=== PATIENT | male | born 2000 | race Two or more races ===

== ENCOUNTER 2020-06-20 08:21 | Emergency (ER) | payer OTHER, SELFPAY ==
[2020-06-20 08:36] VITALS: BP 118/78; PULSE 102; RESP 18; TEMP 36.2; O2SAT 98
[2020-06-20 08:47] LABS: Basophils Percent Auto 0.1 % (0.2-1.2); Eosinophils Absolute Auto 0.1 K/mm3 (0-0.3); Eosinophils Percent Auto 1.2 % (0-4.4); Hematocrit 48.5 % (42.0-52.0); Hemoglobin 16.5 g/dL (14.0-18.0); Immature Granulocyte Absolute 0.01 K/mm3 (0.00-0.031); Immature Granulocyte Percent A 0.1 % (0-0.5); Lymphocytes Absolute Auto 0.63 K/mm3 (0.9-3.2); Lymphocytes Percent Auto 8.4 % (18.3-44.2); Mean Corpuscular Hemoglobin 30.7 pg (26-34); Mean Corpuscular Volume 90.1 fl (80-100); Mean Platelet Volume 10.1 fl (7.4-10.4); Monocytes Absolute Auto 0.4 K/mm3 (0.1-0.6); Monocytes Percent Auto 4.7 % (2.6-8.5); Neutrophils Absolute Auto 6.4 K/mm3 (1.3-6.7); Neutrophils Percent Auto 85.5 % (45.5-73.1); Platelet Count Result 166 k/mm3 (150-375); Red Blood Count 5.38 M/mm3 (4.6-6.20); Red Cell Distribution Width 12.1 % (11.5-14.5); White Blood Count 7.5 K/mm3 (4.5-10.0)
[2020-06-20 08:51] LABS: Add Urine Microscopic? YES; Appearance Urine Clear (Clear); Bacteria Urine Trace /hpf; Bilirubin Urine Negative (Negative); Blood Urine Negative (Negative); Color Urine Yellow (Yellow); Glucose Urine UA Negative (Negative); Ketones Urine Negative (Negative); Leukocyte Esterase Ur Negative LEU/UL (Negative); Mucus Urine Moderate /lpf; Nitrate Urine Negative (Negative); Protein Urine 1+ mg/dL (Negative); RBC Urine 0-2 /hpf (0-2); Specific Grav Ur 1.028 (1.001-1.035); Urobilinogen Urine Negative mg/dL (<2.0); WBC Urine 0-3 /hpf
[2020-06-20 08:58] LABS: Alanine Aminotransferase 46 U/L (4-50); Albumin Level 4.8 g/dL (3.5-5.1); Alkaline Phosphatase 66 U/L (38-126); Anion Gap 7 mmol/L (8-16); Aspartate Amino Transferase 41 U/L (17-59); Bilirubin,Total 1.1 mg/dL (0.2-1.3); Blood Urea Nitrogen 26 mg/dL (9-20); Calcium 9.6 mg/dL (8.4-10.2); Carbon Dioxide 31 mmol/L (22-30); Chloride 105 mmol/L (98-107); Estimated CRCL calculation 110 ml/min; Estimated Glomerular Filt Rate > 60; Glucose 107 mg/dL (75-110); Lipase 125 U/L (23-300); Sodium 143 mmol/L (137-145)
--- NOTE | 2020-06-20 08:59 | ED.NAVMDI ---
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 HE woke up at 230 am this morning with mild diarrhea. He states he woke up again 2 hours later with nausea and vomiting. He states he felt fine but 2 hours later he woke up feeling dizziness, nauseous and he vomited again. He still reports mild dizziness that he describes as spinning. He denies abdominal pain,chest pain, fever, chills, cough, ear ache. He ate subway yesterday at 7 pm and he states that is what he threw up this morning. He denies any sick contacts. Related Data Allergies Allergy/AdvReac Type Severity Reaction Status Date / Time No Known Drug Allergies Allergy Mild Other Verified 06/20/20 09:50 Review of Systems Review of Systems: All systems reviewed & are unremarkable except as noted in HPI and below Constitutional: Constitutional: Denies chills and Denies fever(s) Eyes: Eyes: Denies change in vision ENT: Reports dizziness and Denies sore throat Cardiovascular: Cardiovascular: Denies chest pain Respiratory: Respiratory: Denies cough and Denies dyspnea Gastrointestinal: Gastrointestinal: Denies abdominal pain, Reports diarrhea, Reports nausea and Reports vomiting PMFSH Past Medical History Medical History (Updated 06/20/20 @ 12:21 by Gardenia Mckeon MD) Patient denies medical problems Surgical History Surgical History (Updated 06/20/20 @ 09:00 by Gardenia Mckeon MD) H/O wisdom tooth extraction Social History Social History (Updated 06/20/20 @ 09:00 by Gardenia Mckeon MD) Smoking status: Never smoker Alcohol intake: never Substance use: never Gender identity (if verbalized by the patient): Male Exam Const: General: no acute distress and alert Orientation/consciousness: patient oriented x3 HENMT: Ears: external ears normal and TM abnormal obstructed by cerumen bilateral Face and sinus: face symmetric Mouth: Yes Normal oral and palatal mucosa present, Yes lip normal, Yes oropharynx normal and Yes moist mucous membranes Throat: posterior oropharynx normal and tonsils normal Eyes: Pupils: Equal, round and reactive pupils present EOM: EOMs intact bilaterally Chest: Chest palpation & inspection: normal inspection of the chest Resp: Effort & Inspection: normal respiratory effort and no retractions Auscultation: clear to auscultation bilaterally Cardio: Rate: regular rate Rhythm: regular rhythm Heart sounds: no murmurs GI: GI Palp: Yes Soft to palpation, No Tenderness to palpation present (GI) and No Guarding due to palpation present (GI) Auscultation: normal bowel sounds Back/Spine/Pelvis: Back: no CVA tenderness Skin: General skin exam: normal color Rashes: no rashes Neuro: General: patient oriented x3, moves all extremities and CN's II-XI intact bilaterally Psych: Mental Status: mental status grossly normal Affect: normal affect Course Reevaluation(s) Reevaluation #1: PAtient's ears were irrigated. He states he feels better. He was able to tolerate PO. He was mildly dehydrated. Date: 06/20/20 Time: 12:20 Vital Signs Vital signs: Vital Signs Temperature 97.2 F L 06/20/20 08:36 Pulse Rate 102 H 06/20/20 08:36 Respiratory Rate 18 06/20/20 08:36 Blood Pressure 118/78 06/20/20 08:36 Pulse Oximetry 98 06/20/20 08:36 Temperature 97.2 F L 06/20/20 08:36 Pulse Rate 92 06/20/20 12:55 Respiratory Rate 16 06/20/20 12:55 Blood Pressure 120/70 06/20/20 12:55 Pulse Oximetry 99 06/20/20 12:55 MDM - Nausea/Vomiting/Diarrhea Lab Data Attestation: I reviewed the patient's lab results. Result diagrams: 06/20/20 08:40 06/20/20 08:40
[2020-06-20 09:07] VITALS: BP 107/73; PULSE 93
[2020-06-20 09:08] VITALS: BP 115/80; PULSE 95
[2020-06-20 09:10] VITALS: BP 108/80; PULSE 95
[2020-06-20] MEDS: LACTATED RINGERS 1,000 ML 999 ML IV CONT ×2 (09:58)
[2020-06-20] MEDS: ONDANSETRON INJ 4 MG/2 ML VIAL IV PUSH (09:58)
[2020-06-20] MEDS: MECLIZINE HCL 25 MG TABLET PO ×2 (09:58→11:21)
[2020-06-20 10:38] VITALS: BP 111/60; PULSE 83; RESP 13
[2020-06-20 12:55] VITALS: BP 120/70; PULSE 92; RESP 16; O2SAT 99
[2020-06-20 23:32] LABS: SARS-CoV-2 RNA PCR Negative
== END 2020-06-20 12:55 | disposition home or self-care (01) ==
PROVIDERS: Emergency Provider General Practice; PCP Pediatrics
DX: K52.9 Noninfective gastroenteritis and colitis, unspecified (principal); E86.0 Dehydration; Z20.822 Contact with and (suspected) exposure to COVID-19
CPT/HCPCS: 36415; 80053; 81001; 83690; 85025; 96361; 96374; 99284; A9270; C9803; J2405; J7120; U0003; U0005

== ENCOUNTER 2023-04-28 04:35 | Emergency (ER) | payer OTHER, SELFPAY ==
[2023-04-28 04:41] VITALS: BP 103/79; PULSE 129; RESP 16; TEMP 36.9; O2SAT 99
[2023-04-28 06:04] LABS: Basophils Percent Auto 0.1 % (0.2-1.2); Hematocrit 45.9 % (42.0-52.0); Hemoglobin 15.3 g/dL (14.0-18.0); Immature Granulocyte Absolute 0.03 K/mm3 (0.00-0.031); Immature Granulocyte Percent A 0.3 % (0-0.5); Lymphocytes Absolute Auto 0.78 K/mm3 (0.9-3.2); Lymphocytes Percent Auto 8.7 % (18.3-44.2); Mean Corpuscular HGB Conc 33.3 g/dl (32-36); Mean Corpuscular Hemoglobin 29.3 pg (26-34); Mean Corpuscular Volume 87.9 fl (80-100); Mean Platelet Volume 9.6 fl (7.4-10.4); Monocytes Absolute Auto 0.6 K/mm3 (0.1-0.6); Monocytes Percent Auto 6.5 % (2.6-8.5); Neutrophils Absolute Auto 7.5 K/mm3 (1.3-6.7); Neutrophils Percent Auto 84.4 % (45.5-73.1); Platelet Count Result 214 k/mm3 (150-375); Red Blood Count 5.22 M/mm3 (4.6-6.20); Red Cell Distribution Width 12.7 % (11.5-14.5); White Blood Count 8.9 K/mm3 (4.5-10.0)
[2023-04-28 06:16] LABS: Appearance Urine Clear (Clear); Bilirubin Urine Negative (Negative); Blood Urine Negative (Negative); Color Urine Yellow (Yellow); Glucose Urine UA Negative (Negative); Ketones Urine 2+ mg/dL (Negative); Leukocyte Esterase Ur Negative LEU/UL (Negative); Nitrate Urine Negative (Negative); Protein Urine Negative (Negative); Specific Grav Ur 1.031 (1.001-1.035); Urobilinogen Urine 0.2 mg/dL (<2.0); pH Urine 5.5 (5.0-9.0)
[2023-04-28 06:17] LABS: Alanine Aminotransferase 99 U/L (6-50); Albumin Level 4.5 g/dL (3.5-5.1); Alkaline Phosphatase 74 U/L (38-126); Anion Gap 8 mmol/L (8-16); Aspartate Amino Transferase 49 U/L (17-59); Bilirubin,Total 1.1 mg/dL (0.2-1.3); Blood Urea Nitrogen 19 mg/dL (9-20); Calcium 9.4 mg/dL (8.4-10.2); Carbon Dioxide 26 mmol/L (22-30); Chloride 101 mmol/L (98-107); Estimated CRCL calculation 87 ml/min; Estimated Glomerular Filt Rate > 60; Glucose 112 mg/dL (65-110); Lipase 89 U/L (23-300); Potassium 4.5 mmol/L (3.4-5.0); Sodium 135 mmol/L (137-145)
[2023-04-28 06:49] LABS: Add Urine Microscopic? NO
[2023-04-28 07:40] VITALS: BP 120/79; PULSE 103; RESP 20; O2SAT 99
--- NOTE | 2023-04-28 08:32 | ED.GENADULT ---
HPI - General Adult General Chief complaint: Nausea/Vomiting/Diarrhea Stated complaint: N/V/ Time Seen by Provider: 04/28/23 07:31 History of Present Illness HPI narrative: Patient is a 22-year-old male who presents ER with nausea and vomiting. Sudden onset last night. Associated with dizziness nausea when he goes from sitting to standing. He endorses fever of 102? F. Related Data Allergies Allergy/AdvReac Type Severity Reaction Status Date / Time No Known Drug Allergies Allergy Mild Other Verified 04/28/23 07:39 Review of Systems Review of Systems: All systems reviewed & are unremarkable except as noted in HPI and below Constitutional: Constitutional: Reports chills, Reports fatigue and Reports fever(s) ENT: Reports dizziness, Reports nasal congestion and Reports sore throat Cardiovascular: Cardiovascular: Reports no additional cardiovascular complaints Respiratory: Respiratory: Reports no additional respiratory complaints Gastrointestinal: Gastrointestinal: Denies abdominal pain, Denies diarrhea, Reports nausea and Reports vomiting Genitourinary: Genitourinary: Reports no additional male genitourinary complaints PMFSH Past Medical History Medical History Patient denies medical problems VSD (ventricular septal defect) Surgical History Surgical History H/O wisdom tooth extraction Family History Family History Mother Hypertension Sibling Asthma Social History Social History Smoking status: Never smoker Alcohol intake: never Substance use: never Gender identity (if verbalized by the patient): Male Exam Narrative: GENERAL: Well-appearing, well-nourished, and in no acute distress. HEAD: Normocephalic, atraumatic. ENT: Mucous membranes moist. CHEST: Clear to auscultation. No respiratory distress. HEART: Regular rate and rhythm. Harsh murmur along left sternal border. Normal peripheral pulses. ABDOMEN: Soft, nontender, nondistended. EXTREMITIES: Normal range of motion. No edema. SKIN: Warm, dry, no rash. NEURO: Alert and oriented x3. PSYCH: Normal mood and affect. Course Course Emergency Course: Blood pressure improving with IV fluid. Patient did spike a fever and will receive oral Tylenol. orthostatics after IV fluid normal. Patient appropriate for discharge home. Vital Signs Vital signs: Vital Signs Temperature 98.4 F 04/28/23 04:41 Pulse Rate 129 H 04/28/23 04:41 Respiratory Rate 16 04/28/23 04:41 Blood Pressure 103/79 04/28/23 04:41 Pulse Oximetry 99 04/28/23 04:41 Oxygen Delivery Room Air 04/28/23 04:41 Temperature 98.6 F 04/28/23 11:40 Pulse Rate 78 04/28/23 11:51 Respiratory Rate 20 04/28/23 11:51 Blood Pressure 117/79 04/28/23 11:51 Pulse Oximetry 100 04/28/23 11:51 Oxygen Delivery Room Air 04/28/23 04:41 Medical Decision Making Vital Signs Vital Signs: Vital Signs Temperature 98.4 F 04/28/23 04:41 Pulse Rate 129 H 04/28/23 04:41 Respiratory Rate 16 04/28/23 04:41 Blood Pressure 103/79 04/28/23 04:41 Pulse Oximetry 99 04/28/23 04:41 Oxygen Delivery Room Air 04/28/23 04:41 Temperature 98.6 F 04/28/23 11:40 Pulse Rate 78 04/28/23 11:51 Respiratory Rate 20 04/28/23 11:51 Blood Pressure 117/79 04/28/23 11:51 Pulse Oximetry 100 04/28/23 11:51 Oxygen Delivery Room Air 04/28/23 04:41 Lab Data 04/28/23 05:55 04/28/23 05:55 Labs: Lab Results 04/28/23 04/28/23 04/28/23 Range/Units 05:55 06:09 08:33 WBC 8.9 (4.5-10.0) K/mm3 RBC 5.22 (4.6-6.20) M/mm3 Hgb 15.3 (14.0-18.0) g/dL Hct 45.9 (42.0-52.0) % MCV 87.9 (80-100) fl MCH 29.3 (26-34) pg MCHC 33.3 (32-36) g/dl RDW 12.7 (11.5-14.5)
[2023-04-28] MEDS: SODIUM CHLORIDE 0.9% IV 1,000 ML 999 ML IV CONT ×2 (09:12→10:34)
[2023-04-28 09:13] LABS: Influenza A QL RT-PCR Negative (Negative); Influenza B QL RT-PCR Positive (Negative); RSV RNA, RT-PCR Negative (Negative); SARS-CoV-2 RNA PCR Negative (Negative)
[2023-04-28] MEDS: ACETAMINOPHEN 325 MG TABLET 650 MG PO (09:53)
[2023-04-28 09:54] VITALS: BP 123/77; PULSE 111; RESP 20; TEMP 38.7; O2SAT 100
[2023-04-28] MEDS: MECLIZINE HCL 25 MG TABLET PO (10:34)
[2023-04-28 11:40] VITALS: TEMP 37
[2023-04-28 11:51] VITALS: BP 117/79; PULSE 78; RESP 20; O2SAT 100
== END 2023-04-28 11:30 | disposition home or self-care (01) ==
PROVIDERS: Emergency Medicine; Emergency Provider Emergency Medicine
DX: J11.89 Influenza due to unidentified influenza virus with other manifestations (principal); R42 Dizziness and giddiness; H61.20 Impacted cerumen, unspecified ear; Z20.822 Contact with and (suspected) exposure to COVID-19; Q21.0 Ventricular septal defect
CPT/HCPCS: 36415; 80053; 81003; 83690; 85025; 87637; 96360; 96361; 99283; A9270; J7030